=== PATIENT | female | born 1975 | race Caucasian/White ===

== ENCOUNTER → 2023-11-27 06:36 | Day surgery (SDC) | payer BC, SELFPAY | LOC: GI 06:36 | PROVIDERS: ATTENDING PHYSICIAN Internal Medicine Gastroenterology | DX: Z12.11 Encounter for screening for malignant neoplasm of colon (principal); K62.1 Rectal polyp; D12.3 Benign neoplasm of transverse colon; D12.4 Benign neoplasm of descending colon | CPT/HCPCS: 45385; 88305 ==

== ENCOUNTER 2024-11-20 17:17 | Emergency (ER) | payer BC, SELFPAY ==
[2024-11-20 17:24] VITALS: BP 148/96
--- NOTE | 2024-11-20 17:25 | ED.GENMED ---
ED Provider Triage
-
Patient seen by provider in Triage?: Seen in Triage
Attestation: A medical screening examination has been initiated by a qualified medical provider. Based on the assessment performed at this time, it has been determined that an emergent medical condition may exist and the patient has been informed
that further medical evaluation and possible additional diagnostic testing may be needed.
HPI: 49yoF here with chest pain. Intermittent sharp shooting pain underneath L breast. Worse with deep breathing. Also having some L shoulder discomfort.
GENERAL: Alert , in no apparent distress
EYE: No visual abnormalities.
NECK: Trachea midline
ENT: No visible abnormalities.
LUNGS: No acute respiratory distress
NEUROLOGICAL: Alert and oriented
SKIN: Skin intact. No visible changes.
MUSCULOSKELETAL: Moving extremities normally
PSYCH: Normal and appropriate interaction.
This is a medical evaluation conducted in person to initiate diagnostic evaluation and provide initial therapeutics. Please see further documentation by the treating clinician.
No ischemic changes on EKG. Cardiac labs, D-dimer, and CXR ordered.
History of Present Illness
General
Chief Complaint: Chest Pain
Source: patient
Exam Limitations: none
Time Seen by Provider: 11/20/24 21:20
History of Present Illness
History of Present Illness:
49yoF with no significant past medical history presenting for evaluation of chest pain that began earlier today. She reports intermittent pain underneath her left breast. The pain is described as a stabbing pain that is worse with breathing. Pain
lasts several seconds at a time. She also has some left shoulder discomfort. No exertional symptoms. She denies any abdominal pain, nausea, vomiting, fevers, cough, shortness of breath. She is not on any medications and does not smoke.
Past History
Past History
ED Past Medical History: None
ED Past Surgical History: Other (Cosmetic)
Social History
Tobacco: Non-smoker
Alcohol: None
Drug: None
Personal:
Living: with family
Phy Exam
General Physical Exam
General Presentation: well appearing and no apparent distress
General age: appears stated age
General Skin: warm and dry
General Habitus: normal
General Mental: alert
ENT Exam
ENT Exam: normocephalic
Cardiovascular Exam
Cardiovascular Exam: regular rate/rhythm and no murmur
Pulmonary Exam
Pulmonary Exam: lungs clear, no respiratory distress, no rales, chest non tender, no crackles and no rhonchi
Gastrointestinal Exam
Gastrointestinal Exam: non tender, soft and non distended
Neurological Exam
Neurological Exam: alert
Karena Coma Scale
Eye Opening: Spontaneous
Verbal Response: Oriented
Motor Response: Obeys Commands
GCS Total Score: 15
Skin Exam
Skin Exam: normal color and warm/dry
Psychiatric Exam
Psychiatric Exam: normal mood/affect
Scores
Heart Score for Chest Pain Patients
STEMI patient?: No
History: Slightly or Non-Suspicious
ECG: Normal
Age: >45 - <65 years
Risk Factors: No Risk Factors
Troponin: </= Normal Limit
Heart Score for Chest Pain Patients: 1
Heart Score Risk: 2.5% MACE over next 6 weeks
Course
Orders/Labs/Results
Orders:
Orders
11/20/24 17:19
Electrocardiogram (*1) Urgent
Reason for Study: Chest Pain
EKG- Treatment ONCE
11/20/24 17:26
Test Result ONCE
CR Chest - 2 Views Urgent
Comment:
Reason For Exam: CP
11/20/24 17:29
Complete Blood Count/With Diff Urgent
Comprehensive Metabolic Panel Urgent
D-Dimer Urgent
HCG, Serum Qualitative Screen Urgent
Troponin I Urgent
11/20/24 20:14
Electrocardiogram (*1) Urgent
Reason for Study: Chest Pain
EKG- Treatment ONCE
11/20/24 20:25
Troponin I Urgent
Abnormal Lab Results
11/20/24
17:29
MPV 11.1 H fL
(7.4-10.4)
Glucose 120 H mg/dl
(70-99)
11/20/24 17:29
11/20/24 17:29
Vital Signs
Initial and Last Documented VS:
Initial Vital Signs
Temp Pulse Resp BP Pulse Ox
98.2 F 77 20 148/96 99
11/20/24 17:24 11/20/24 17:24 11/20/24 17:24 11/20/24 17:24 11/20/24 17:24
Last Documented Vital Signs
Temp Pulse Resp BP Pulse Ox
98.2 F 76 18 114/77 99
11/20/24 17:24 11/20/24 21:36 11/20/24 21:36 11/20/24 21:36 11/20/24 21:36
MDM/Problems Addressed
Differential Diagnosis Includes:
49yoF here with L sided sharp chest pain. Worse with breathing, lasts a few seconds at a time. No known cardiac risk factors. She is mildly hypertensive with otherwise stable vitals. She is well appearing in no distress. Exam is reassuring.
Differential diagnosis includes but is not limited to: pleurisy, costochondritis, pneumonia, pleural effusion, pneumothorax, PE, ACS
Patient was initially seen in triage. Initial EKG negative for ischemic changes and troponin WNL. D-dimer normal making PE very unlikely. Repeat troponin/EKG performed at 3 hours unchanged. CXR appears normal per my interpretation. HEART score is 1
for age. No indication for hospitalization. She was advised to f/u closely with her PCP. ED return precautions discussed. Patient in agreement with plan and was discharged in stable condition.
*EKG
Interpreted by ED Provider?: Yes
EKG Intrepretation Date: 11/20/24
Interpretation: normal
Heart Rate: 65
Rate: normal
Rhythm: sinus
Mccammon: normal axis
Interval: normal interval
QRS Pattern: normal QRS
Ischemia: no ischemia
*Critical Care Note
Total Time (30-74mins, 75-104mins- exclusive of procedures): Not Applicable
ED Attending Note
-
Portions of this chart may have been created with voice recognition software.� Occasional wrong word or��sound alike� substitutions may have occurred due to the inherent limitations of voice recognition software.
Discharge Plan
Departure
Patient Disposition: Home (Routine Discharge)
Date of Disposition: 11/20/24
Time of Disposition: 21:30
Patient with high blood pressure during this ER visit?: Yes
Discharge Problem:
Chest pain
Instructions: Chest Pain PCP Follow Up
Prescriptions:
No Action
No Current Medications
0
Activity Restrictions/Additional Instructions:
Please follow-up with your family doctor on Saturday. Return to the ER with any new or worsening symptoms.
Interventions
Interventions:
*Risk Screen - Suicide Last Done: 11/20/24 17:24
*General Assessment Last Done: 11/20/24 17:24
*Neglect/Abuse Screening Last Done: 11/20/24 17:24
ED- Fall Risk Assessment Last Done: 11/20/24 21:37
*ED COVID-19 Vaccine History Last Done: 11/20/24 21:37
*Nursing Disposition Last Done: 11/20/24 21:37
ED- Cardiac Assessment Last Done: 11/20/24 21:36
Discharge Date and Time
Discharge Date/Time: 11/20/24 21:40
Print Language: CROATIAN
[2024-11-20 17:45] LABS: % Basophils 0.6 % (0-2); % Immature Granulocytes 0.2 % (0-0.5); % Lymphocytes 43.3 % (20.5-51.1); % Monocytes 6.7 % (1.7-9.3); % Neutrophils 47.2 % (42.2-75.2); Absolute Eosinophils 0.1 10^3/uL (0-0.7); Absolute Lymphocytes 2.8 10^3/uL (1.2-3.4); Absolute Monocytes 0.4 10^3/uL (0.1-0.6); Absolute Neutrophils 3.1 10^3/uL (1.4-6.5); Hematocrit 39.1 % (37.0-47.0); Hemoglobin 12.9 g/dL (12.0-16.0); Mean Corpuscular Hgb 28.7 pg (27.0-31.0); Mean Corpuscular Volume 86.9 fL (81.0-99.0); Mean Platelet Volume 11.1 fL (7.4-10.4); Nucleated Red Blood Cells % 0 %; Platelet Count 301 10^3/uL (130-400); Red Cell Dist. Width 13.1 % (11.5-14.5); White Blood Cell Count 6.5 10^3/uL (4.8-10.8)
[2024-11-20 17:54] LABS: HCG, Serum Qualitative Screen Negative
[2024-11-20 17:57] LABS: ALT (SGPT) 17 U/L (0-35); AST (SGOT) 20 U/L (14-36); Albumin 4.7 g/dl (3.5-5.0); Alkaline Phosphatase 64 U/L (38-126); Blood Urea Nitrogen 14 mg/dl (7-17); Calcium 9.7 mg/dl (8.4-10.2); Carbon Dioxide 30 mmol/L (22-30); Chloride 98 mmol/L (98-107); Glucose 120 mg/dl (70-99); Potassium 4.1 mmol/L (3.5-5.1); Sodium 137 mmol/L (135-145); Total Bilirubin 0.8 mg/dl (0.2-1.3); Total Protein 7.7 g/dl (6.3-8.2); eGFR > 60.00
[2024-11-20 18:09] LABS: Troponin I < 0.012 ng/ml
[2024-11-20 18:17] LABS: D-Dimer < 0.27 ug/mlFEU (0.00-0.50)
[2024-11-20 21:00] LABS: Troponin I < 0.012 ng/ml
[2024-11-20 21:36] VITALS: BP 114/77
== END 2024-11-20 21:40 | disposition home or self-care (01) ==
LOC: EMR 17:17
PROVIDERS: Physician Assistant; EMERGENCY PHYSICIAN Emergency Medicine; FAMILY PHYSICIAN Internal Medicine
DX: R07.89 Other chest pain (principal); R03.0 Elevated blood-pressure reading, without diagnosis of hypertension
CPT/HCPCS: 99285; 71046; 80053; 84484; 84703; 85025; 85379; 93005